=== PATIENT | female | born 1950 ===

== ENCOUNTER 2023-01-05 09:17 | Outpatient (CLI) | payer OTHER | END 2023-01-05 09:22 | disposition home or self-care (01) | LOC: SONOGRAMA 09:17 | PROVIDERS: ATTEND Internal Medicine Gastroenterology | DX: R10.9 Unspecified abdominal pain (principal) ==

== ENCOUNTER → 2025-03-07 15:28 | Outpatient (CLI) | payer OTHER | END | disposition home or self-care (01) | LOC: MRI 15:28 | PROVIDERS: ATTEND Psychiatry & Neurology Clinical Neurophysiology | DX: G45.1 Carotid artery syndrome (hemispheric) (principal); I63.30 Cerebral infarction due to thrombosis of unspecified cerebral artery | CPT/HCPCS: 70551 ==